=== PATIENT | male | born 1955 | race Caucasian/White ===

== ENCOUNTER → 2020-01-04 09:13 | Outpatient (CLI) | payer MEDICARE, OTHER, SELFPAY ==
[2020-01-04 10:36] LABS: Hemoglobin 15.8 g/dL (13.5-17.5); Mean Corpuscular HGB Conc 33.6 % (30-36); Mean Corpuscular Hemoglobin 30.6 PG (26-34); Mean Corpuscular Volume 91.2 fL (80-100); Platelet Count 277 X10^3/uL (150-400); Red Blood Cell Count 5.15 X10^6/uL (4.5-5.9); Red Cell Distribution Width 13.4 % (11.6-14.8); White Blood Cell Count 14.1 X10^3/uL (4.5-11.0)
[2020-01-04 11:42] LABS: Alanine Aminotransferase 22 IU/L (<50); Albumin 4.8 g/dL (3.5-5.0); Albumin Globulin Ratio 1.7 (1.0-2.8); Alkaline Phosphatase 96 U/L (38-126); Aspartate Aminotransferase 22 IU/L (17-59); BUN Creatinine Ratio 19.7 (6-22); Bilirubin Total 1.1 mg/dL (0.2-1.3); Blood Urea Nitrogen 15 mg/dL (9-20); Calcium 10.2 mg/dL (8.4-10.2); Carbon Dioxide 28 mmol/L (22-32); Chloride 105 mmol/L (98-107); Cholesterol 183 mg/dL (140-199); Estimated Glomerular Filt Rate > 60.0 mL/min (>60); Globulin 2.9 g/dL (1.7-4.1); HDL Cholesterol 49 mg/dL (40-60); HEMOLYSIS < 15 (0-50); LDL Cholesterol Calculated 114 mg/dL (<100); Potassium 3.2 mmol/L (3.4-5.1); Sodium 143 mmol/L (137-145); Total Protein 7.7 g/dL (6.3-8.2); Triglycerides 98 mg/dL (35-150); VLDL Cholesterol Calculated 20 mg/dL (2-30)
[2020-01-04 12:17] LABS: Glucose 36 mg/dL (80-110)
[2020-01-04 19:54] LABS: Creatinine Urine Random 147.5 mg/dL
[2020-01-04 19:58] LABS: Microalbumi Creatinin Ratio Ur 59.6 ug/mg CR (<30); Microalbumin Urine Random 8.8 mg/dL (0-1.6)
[2020-01-05 07:09] LABS: PSA, Total 0.8 ng/mL (0.0-4.0)
== END ==
PROVIDERS: PCP Nurse Practitioner; Referring Provider Nurse Practitioner; Visit Provider Nurse Practitioner
DX: E11.9 Type 2 diabetes mellitus without complications (principal); N40.0 Benign prostatic hyperplasia without lower urinary tract symptoms
CPT/HCPCS: 36415; 80053; 80061; 82043; 82570; 84153; 84154; 85027

== ENCOUNTER → 2020-07-17 10:13 | Outpatient (CLI) | payer MEDICARE, OTHER, SELFPAY ==
[2020-07-17 11:26] LABS: COVID19 -Nasal RAPID Negative (Negative)
== END ==
PROVIDERS: PCP Nurse Practitioner; Visit Provider Specialist
DX: Z01.812 Encounter for preprocedural laboratory examination (principal); Z20.822 Contact with and (suspected) exposure to COVID-19
CPT/HCPCS: 87635; C9803

== ENCOUNTER 2020-07-18 08:22 | Day surgery (SDC) | payer MEDICARE, OTHER, SELFPAY ==
[2020-07-18] VITALS (8 sets, daily range): BP systolic 151–173; BP diastolic 79–117; PULSE 79–97; RESP 11–18; TEMP 36.5–37.2; O2SAT 94–99; BMI 33.0
--- NOTE | 2020-07-18 | PATH_ITS ---
[facility] Accession Number: [id number] . 01 Material submitted: . PART A: colon - 1 ASCENDING COLON PART B: body - 2 90 CM . 01 Clinical history: . SCREENING COLONOSCOPY . 02 Diagnosis: A. Ascending Colon, Biopsy: Tubular adenoma. . B. Colon, 90 cm, Biopsy: Tubular adenoma. . [facility] 07/20/2020 1536 Local . 02 Electronically signed: . Sylvia Carreon MD, Pathologist NPI- [id number] . 01 Gross description: . Part A: 1 ASCENDING COLON: Received in formalin are 2 fragment(s) of beal, soft tissue measuring 0.2 x 0.1 x 0.1 cm to 0.3 x 0.2 x 0.2 cm submitted entirely in 1 cassette(s) Part B: 2 90 CM: Received in formalin is 1 fragment(s) of beal, soft tissue measuring 0.2 x 0.2 x 0.2 cm submitted entirely in 1 cassette(s) /JONATAN 07/19/2020 2018 Local . 02 Pathologist provided ICD-10: D12.2, D12.6 . 02 CPT . 025384, [id number] Performed at: 01 [facility] [address], [place], [place] [id number] MD David Pham MD Phone: [phone] Performed at: 02 [facility] [address] [place], [place] [id number] MD Sylvia Carreon MD Phone: [phone]
--- NOTE | 2020-07-18 10:12 | PM.HP.1 ---
History of Present Illness History of Present Illness Date Patient Seen: 07/18/20 Time Patient Seen: 10:13 Chief complaint: SCREENING COLONOSCOPY Narrative: Patient is a gentleman here for screening examination. Last exam was 6 years ago. He had polyps removed at that time. Patient History Medical History (Updated 07/18/20 @ 10:14 by Bartolo Arriaza MD) Essential hypertension Type 2 diabetes mellitus Umbilical hernia with obstruction Family & Social History Social History: household members significant other Tobacco & Substance use: Smoking Status Never smoker alcohol intake current alcohol intake frequency 0-2 drinks per day Substance Use Type does not use Meds Home Medications and Allergies Home Medications Medication Instructions Recorded Confirmed Type Benadryl 1 tab PO DAILY PRN 07/18/20 07/18/20 History Novolin 70/30 U-100 Insulin 30 units SUBDERMAL DAILY 07/18/20 07/18/20 History atorvastatin 10 mg PO DAILY 07/18/20 07/18/20 History lisinopril 5 mg PO DAILY 07/18/20 07/18/20 History metformin 500 mg PO BID 07/18/20 07/18/20 History omeprazole 20 mg PO DAILY 07/18/20 07/18/20 History pioglitazone 30 mg PO DAILY 07/18/20 07/18/20 History Allergies Allergy/AdvReac Type Severity Reaction Status Date / Time No Known Drug Allergies Allergy Verified 07/18/20 08:43 Review of Systems Review of Systems Narrative: No chest pain black or bloody bowel movements seizures blackouts numbness tingling. No heart problems and no breathing issues. Exam Vital Signs (past 8 hours): - 07/18/20 08:53 Temperature 97.7 F Pulse Rate 97 H Respiratory Rate 18 Blood Pressure 173/91 H Pulse Oximetry 99 Oxygen Delivery Method Room Air Narrative Exam Narrative: Pleasant cooperative patient no apparent distress. Lungs are clear to auscultation. No rales or rhonchi. Heart regular rate and rhythm no murmur gallop. Abdomen is soft nontender without mass. Incarcerated umbilical hernia. Not tender. No redness.. Patient is alert and oriented x3. Assessment & Plan Assessment & Plan narrative: The patient for a screening colonoscopy. I have discussed the procedure with them. Risks of bleeding, perforation which would necessitate major operation, failure to find remove all lesions, the potential tattoo were all discussed. All questions were answered. They wished to proceed.
--- NOTE | 2020-07-18 10:18 | PM.PREOP ---
Pre-operative Note COVID-19 COVID-19 status: Negative Result date/Date tested (Pos, Neg/Pending): 07/17/20 Interval Note History & Physical reviewed/Exam performed by Physician: Yes Changes to H&P: No ASA Class (for procedural sedation): III
[2020-07-18] MEDS: MIDAZOLAM 5 MG/5 ML VIAL IV (10:23)
[2020-07-18] MEDS: fentaNYL 250 MCG/5 ML INJ IV (10:23)
--- NOTE | 2020-07-18 10:49 | PM.OP.ENDO ---
Operative Date/Time/Diagnoses Date of procedure: 07/18/20 Time of procedure: 10:49 Pre-op diagnosis: Screening exam. Last exam 6 years ago. Personal history of polyps. Post-op diagnosis: same (Small polyps. Occasional diverticulosis.) Procedure & Clinicians Study performed: Colonoscopy with cold biopsies Same procedure as scheduled: Yes Indications: Screening in increased risk patient Surgeon: Bartolo Arriaza Procedure Notes SCOAP/Timeout: Performed Procedure in detail: The patient was placed in the left lateral decubitus position and underwent IV sedation directed by the surgeon consisting of fentanyl and Versed. Digital exam was unremarkable. I could not feel his prostate well due to the length of my finger and his anatomy.. The scope was inserted and advanced through the rectum into the sigmoid, descending, transverse, and ascending colon. A stiffener was inserted in order to reach the cecum.. The cecum was reached identified by the ileocecal valve and the appendiceal opening. The ileocecal valve was briefly cannulated. The terminal ileum was normal in appearance. The scope was gradually brought out. Polyps were found at the ascending colon and at 90 cm from the anal verge. Both of these were tiny.. The scope ultimately was retroflexed in the rectum. The appearance was normal. The scope was removed and the patient tolerated the procedure well. Prep was very good. Scope withdrawal time: 10 minutes (13 total) Sedation minutes: 26 Findings: polyp Specimen(s): other (Polyps) Complications: none Post-procedure Recommendations: Colonscopy in 5 years Follow up: as needed Disposition: PACU
--- NOTE | 2020-07-18 11:41 | SUR.PHASEII ---
Pt has met discharge criteria: VSS, denied pain or nausea, able to drink fluids without difficulty. Discharge instructions discussed with pt & girlfriend, all questions answered. Transported via W/C to private vehicle.
== END 2020-07-18 11:40 | disposition home or self-care (01) ==
PROVIDERS: PCP Nurse Practitioner; Referring Provider Specialist; Visit Provider Specialist
PROC: 0DJD8ZZ Inspection of Lower Intestinal Tract, Via Natural or Artificial Opening Endoscopic (ICD-10-PCS; CPT 45378; principal; 2020-07-18 09:15)
DX: Z12.11 Encounter for screening for malignant neoplasm of colon (principal); Z86.010 Personal history of colon polyps; I10 Essential (primary) hypertension; E11.9 Type 2 diabetes mellitus without complications; Z79.4 Long term (current) use of insulin; K57.30 Diverticulosis of large intestine without perforation or abscess without bleeding; D12.2 Benign neoplasm of ascending colon; D12.6 Benign neoplasm of colon, unspecified
CPT/HCPCS: 45380; 82962; 99152; 99153; J2250; J3010

== ENCOUNTER → 2020-07-26 14:56 | Outpatient (CLI) | payer MEDICARE, OTHER, SELFPAY ==
[2020-07-26] MEDS: COVID-19 VACC #1, MRNA(MOD) 100 MCG/0.5 ML VIAL IM (15:01)
== END ==
PROVIDERS: PCP Nurse Practitioner; Visit Provider Internal Medicine
DX: Z23 Encounter for immunization (principal)
CPT/HCPCS: 0011A; 91301

== ENCOUNTER → 2020-08-23 14:56 | Outpatient (CLI) | payer MEDICARE, OTHER, SELFPAY ==
[2020-08-23] MEDS: COVID-19 VACC #2, MRNA(MOD) 100 MCG/0.5 ML VIAL IM (15:00)
== END ==
PROVIDERS: PCP Nurse Practitioner; Visit Provider Internal Medicine
DX: Z23 Encounter for immunization (principal)
CPT/HCPCS: 0012A; 91301

== ENCOUNTER → 2021-10-16 15:09 | Outpatient (CLI) | payer OTHER, SELFPAY ==
--- NOTE | 2021-10-17 10:15 | DIAB.MNT ---
Initial Diabetes Medical Nutrition Therapy Assessment Name: Jitendra Will Date: 10/16/21 Time: 340-5p Dx: Type II Diabetes Provider: Victorina Ham presents for initial visit accompanied by , Adia. 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 Reports no h/o DM classes. Has had 1:1 DSME visits when first diagnosed 15 years ago and then again 6-7 years ago. Has questions today about medication management, diet, when to see an endo, urinary freq/incontinence and lows. Reports h/o foot etiologies. Today upon visual inspection, discoloration and edema in feet with some ulceration. Does not wear socks in shoes. Normally sees it trainer q 6 months. Has appt next week. Endorses LE swelling for years. Also has been on Actos for years, which may be a contributing factor. checks feet regularly, putting lotion on feet nightly and helping with compression socks sometimes. Diet recall indicates some higher carb and sodium meals. States he has been on 70/30 for some time and sometimes experiences lows, ie on hikes, if small or skipped breakfast. States he was on 70/30 to be on an easy regimen but seems curious about other insulins and the differences. Low fluid intake, denies fluid restriction. Denies any genital infections (jardiance concern). Diet Recall: a: bagel with cream cheese and tomato or avocato +/- 1c fruit or 1c cereal with 1c berries and 3/4c milk (50-75g CHO) 1030-11a: +/- oatmeal raisin cookie from grocery store (45g CHO) 2p: safeway sushi x 6-7 pieces + 3oz baked chips OR sandwich with chips OR safeway premade vallejo salad (60-75g CHO) 5p: cheese and crackers with cashews or chips and salsa 630p: protein with 1c starch, veggies Beverages: 1L water, 2 servings wine or beer, +/- coffee with milk x 8oz, +/- 8oz OJ Anthropometrics: Ht: 70 Wt: 230# per referral Physical Activity: No program / limited program. Self-Monitoring Blood Glucose: Checking FBG and pre dinner. Per log book, FBG 100-130s and pre dinner in the 200s consistently. Possible that higher carb lunch and snacks may be contributing to elevations pre dinner. Diabetes Medications: Jardiance 25mg Metformin 1000mg BID Pioglitizone 30mg NPH/Regular 70/30 42u BID Pertinent Labs: HgA1c: (per referral) 7.7% 06/2021 8.5% 6 months ago Past Medical History: (Last Updated 07/18/20 @ 10:14 by Bartolo Arriaza MD) Essential hypertension Type 2 diabetes mellitus Umbilical hernia with obstruction Nutrition Rx: Carbohydrates: Meal:45g Snack:15-30g Nutrition Diagnosis: - Excessive CHO intake r/t nutrition knowledge deficit aeb diet recall and pt report - Physical inactivity r/t lack of program / stage of change aeb pt report - Intervention: This participant was very receptive. Provided appropriate educational handouts. Discussed the following topics: Completed intake assessment. Discussed barriers to care. self-monitoring, how often, and when to check. Suggested checking at different times to evaluate meals Plate Method, impact of macronutrients on blood sugar, meal timing, carbohydrate counting, pairing macronutrients and spreading out carbohydrates for better blood glucose management Recommended servings for carbohydrates at meals and snacks Heart health nutrition, sodium and swelling Fluid recs, eileen for Jardiance use Reviewed potential for CGM: benefits and trial Different medication management options and actions: insulins, GLP1, SGLT2i Food health and recs Created SMART goals for patient self-care and success. Goals: Get ankle socks Check BG through the day: FBG, pre/post meals Reduce carbs at meals to 45g (max 60g) Follow-up: MICHEAL LILLY follow-up in 2-3 weeks Meme Pierre RDN, MAXX Certified Diabetes Care and Dice Spotter P: [phone] Thank you for this referral
== END ==
PROVIDERS: PCP Nurse Practitioner; Referring Provider Nurse Practitioner; Visit Provider Nurse Practitioner
DX: E11.9 Type 2 diabetes mellitus without complications (principal); Z79.84 Long term (current) use of oral hypoglycemic drugs; Z79.4 Long term (current) use of insulin; Z71.3 Dietary counseling and surveillance
CPT/HCPCS: 97802

== ENCOUNTER → 2021-10-30 15:57 | Outpatient (CLI) | payer OTHER, SELFPAY ==
--- NOTE | 2021-10-30 17:33 | DIAB.FU ---
Follow-up Diabetes Education Assessment Name: Jitendra Will Date: 10/30/21 Time: 4-5p Dx: Type II Diabetes Jitendra presents for follow-up regarding T2DM with his , Adia. 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 Recs provided by visit was to keep last two toes dry, use rico's wool to assist, and referred to ultrasound to determine blood flow. Recently got socks to use as discussed. Reports he will be leaving this month for another work trip. Will be on a boat and likely going on hikes, etc. Has h/o lows with physical activity per report. Does not usually keep food or glucotabs on hand. Has questions about how ETOH can impact BG. Seems frustrated with medication regimen and cont hyperglycemia. Endorses feeling as though he cannot commit to lifestyle changes at this time due to his work schedule. Would prefer to increase insulin to manage BG. Plans to see PCP tomorrow. Is interested in seeing endo for further recs regarding meds. Physical Activity: No program currently. Self-Monitoring Blood Glucose: FBG often in goal or slightly above. Readings later in the day fairly consistently above goal. Explains a breakfast of 45g CHO, low PRO causing elevation of 205 mg/dl. Bolded readings below elevated per ADA guidelines. 3/8 elevated FBG ; 4/4 elevated pre dinner and 2/3 elevated pc dinner. Date Pre Post Pre Post Pre Post HS 10/17 142 220 10/18 86 148 302 10/19 99 10/20 126 230 10/21 132 10/22 147 153 173 10/27 109 5/ 5 104 259 10/30 146 205 227 Diabetes Medications: Jardiance 25mg Metformin 1000mg BID Pioglitizone 30mg NPH/Regular 70/30 42u BID Pertinent Labs: HgA1c: (per referral) 7.7% 06/2021 8.5% 6 months ago Past Medical History: (Last Updated 07/18/20 @ 10:14 by Bartolo Arriaza MD) Essential hypertension Type 2 diabetes mellitus Umbilical hernia with obstruction Intervention: This participant was very receptive. Provided appropriate educational handouts. Discussed the following topics: Recent blood sugar results and trends Medication management Review of general nutrition recommendations and current intake ETOH impact on BG Physical activity plan Label reading for net carbs Breakfast options with more fiber and pro Prevention of complications: foot care Prevention of lows Created SMART goals for patient self-care and success. Goals: Get ankle socks Check BG through the day: FBG, pre/post meals Reduce carbs at meals to 45g (max 60g) Purchase wool for toes- new Carry a supplemental bar and glucotabs on hikes- new Ask provider about endo- new Overall, Jitendra seems more aware of BG trends and impact of lifestyle changes. He also is honest about his ability to make changes at this time. Seems likely that with more activity and balanced meals/snacks his BG may improve, but at this time he may benefit from medication adjustment. Potential for titration of a.m. insulin given hyperglycemia during the day. Follow-up: MICHEAL LLILY follow-up in February. Jitendra would like to check in after his work season slows down in the fall. Meme Pierre, MICHEAL, [facility] Certified Diabetes Care and Animal Husbandry Teacher P: [phone] Thank you for this referral
== END ==
PROVIDERS: PCP Nurse Practitioner; Referring Provider Nurse Practitioner; Visit Provider Nurse Practitioner
DX: E11.9 Type 2 diabetes mellitus without complications (principal); Z71.3 Dietary counseling and surveillance; Z79.84 Long term (current) use of oral hypoglycemic drugs; Z79.4 Long term (current) use of insulin
CPT/HCPCS: G0108

== ENCOUNTER → 2022-06-07 09:22 | Outpatient (CLI) | payer OTHER, SELFPAY ==
[2022-06-07 10:17] LABS: Add Manual Diff / Slide Review NO; Basophils Absolute Auto 0 /uL (0-100); Basophils Percent Auto 0.4 % (0-2); Eosinophils Absolute Auto 100 /uL (0-450); Eosinophils Percent Auto 1.6 % (2-4); Hematocrit 44.6 % (41-53); Hemoglobin 15.2 g/dL (13.5-17.5); Lymphocytes Absolute Auto 1800 /uL (1100-4500); Lymphocytes Percent Auto 21.2 % (25-40); Mean Corpuscular HGB Conc 34.2 % (30-36); Mean Corpuscular Hemoglobin 31.5 PG (26-34); Mean Corpuscular Volume 92.2 fL (80-100); Monocytes Absolute Auto 600 /uL (0-900); Monocytes Percent Auto 6.7 % (3-14); Neutrophils Absolute Auto 5900 /uL (1500-7000); Neutrophils Percent Auto 70.1 % (50-75); Platelet Count 218 X10^3/uL (150-400); Red Blood Cell Count 4.83 X10^6/uL (4.5-5.9); White Blood Cell Count 8.4 X10^3/uL (4.5-11.0)
[2022-06-07 10:21] LABS: Hemoglobin A1C% w Est Avg Glu 7.6 % (4.0-6.0)
[2022-06-07 11:07] LABS: Creatinine Urine Random 152.6 mg/dL
[2022-06-07 11:10] LABS: Microalbumi Creatinin Ratio Ur 33.4 ug/mg CR (<30); Microalbumin Urine Random 5.1 mg/dL (0-1.6)
[2022-06-07 11:17] LABS: TSH w/ Reflex to FT4 1.89 uIU/mL (0.47-4.68)
[2022-06-07 11:36] LABS: Hep C Virus Ab w/Reflex Quant NEGATIVE s/c (NEGATIVE)
[2022-06-07 12:22] LABS: Alanine Aminotransferase 24 IU/L (<50); Albumin 4.3 g/dL (3.5-5.0); Albumin Globulin Ratio 1.4 (1.0-2.8); Alkaline Phosphatase 94 U/L (38-126); Aspartate Aminotransferase 25 IU/L (17-59); BUN Creatinine Ratio 23.3 (6-22); Bilirubin Total 1.4 mg/dL (0.2-1.3); Blood Urea Nitrogen 17 mg/dL (9-20); Calcium 8.7 mg/dL (8.4-10.2); Carbon Dioxide 29 mmol/L (22-32); Chloride 103 mmol/L (98-107); Cholesterol 111 mg/dL (140-199); Estimated Glomerular Filt Rate > 60 mL/min (>60); Glucose 88 mg/dL (80-110); HDL Cholesterol 62 mg/dL (40-60); LDL Cholesterol Calculated 35 mg/dL (<100); Potassium 3.9 mmol/L (3.4-5.1); Sodium 140 mmol/L (137-145); Total Protein 7.3 g/dL (6.3-8.2); Triglycerides 72 mg/dL (35-150)
[2022-06-07 16:57] LABS: HEMOLYSIS < 15 (0-50)
== END ==
PROVIDERS: PCP Family Medicine; Referring Provider Family Medicine; Visit Provider Family Medicine
DX: E11.9 Type 2 diabetes mellitus without complications (principal); I10 Essential (primary) hypertension; Z12.5 Encounter for screening for malignant neoplasm of prostate; E78.2 Mixed hyperlipidemia
CPT/HCPCS: 36415; 80053; 80061; 82043; 82570; 83036; 84443; 85025; 86803; G0103

== ENCOUNTER → 2022-12-29 08:50 | Outpatient (CLI) | payer OTHER, SELFPAY ==
--- NOTE | 2022-12-29 08:51 | DI.MRI.S_ITS ---
PROCEDURE: MR HEAD/BRAIN WO/W CON INDICATIONS: imbalance, urinary incontinence, syncope TECHNIQUE: Noncontrast axial T1 spin echo, axial T2 fast spin echo, sagittal and axial FLAIR, coronal T2 fast spin echo, axial gradient echo, axial diffusion and ADC through the brain. After the administration of contrast, axial and coronal and sagittal T1 spin echo with fat saturation through the brain. COMPARISON: None. FINDINGS: Image quality: Excellent. CSF spaces: Basal cisterns are patent. No extra-axial fluid collections. Ventricles are normal in size and shape. Brain: No midline shift. No intracranial bleeds or masses. No abnormal intracranial enhancement. There is cerebral volume loss for age. There is periventricular white matter chronic small vessel ischemic change. The brainstem appears normal. Diffusion-weighted images demonstrate no acute ischemic insults. No chronic ischemic insults. Normal intravascular flow voids are present. Skull and face: Calvarial marrow is normal in signal. Orbits appear normal. Sinuses: Sinuses and mastoids appear clear. IMPRESSION: 1. Mild volume loss and small vessel ischemic disease. 2. No acute process. No recent infarct. Dictated by: Amol Prabhakar M.D. on 12/30/2022 at 10:20 Approved by: Amol Prabhakar M.D. on 12/30/2022 at 10:21
== END ==
PROVIDERS: PCP Family Medicine; Referring Provider Family Medicine; Visit Provider Family Medicine
DX: R26.89 Other abnormalities of gait and mobility (principal); R32 Unspecified urinary incontinence; R55 Syncope and collapse
CPT/HCPCS: 70553

== ENCOUNTER → 2023-01-01 09:40 | Outpatient (CLI) | payer OTHER, SELFPAY | PROVIDERS: PCP Family Medicine; Referring Provider Family Medicine; Visit Provider Family Medicine | DX: R55 Syncope and collapse (principal) | CPT/HCPCS: 93246 ==

== ENCOUNTER → 2023-02-03 08:38 | Outpatient (CLI) | payer OTHER, SELFPAY ==
[2023-02-03 10:20] LABS: Appearance Urine UA CLEAR; Bilirubin Urine UA NEGATIVE (NEGATIVE); Color Urine UA YELLOW; Glucose Urine UA 3+ g/dL (Negative); Ketones Urine UA TRACE (NEGATIVE); Leukocyte Esterase Urine UA NEGATIVE (NEGATIVE); Nitrite Urine UA NEGATIVE (Negative); Occult Blood Urine UA NEGATIVE (Negative); Protein Urine UA TRACE (Negative); pH Urine UA 5.5 (4.5-8.0)
[2023-02-03 10:34] LABS: Bacteria Urine Few (2-10); Mucus Urine 1+ (Negative); RBC Urine 0-1/HPF (0-5/HPF); Squamous Epithelial Cell Urine 0-1 /HPF (0-5/HPF); WBC Urine 5-10/HPF (0-5/HPF)
[2023-02-03 10:35] LABS: Culture Indicated Urine Specimen Cultured
[2023-02-03 10:51] LABS: Creatinine Urine Random 155.3 mg/dL
[2023-02-03 10:56] LABS: Microalbumi Creatinin Ratio Ur 28.9 ug/mg CR (<30); Microalbumin Urine Random 4.5 mg/dL (0-1.6)
[2023-02-03 11:34] LABS: Add Manual Diff / Slide Review NO; Basophils Absolute Auto 0 /uL (0-100); Basophils Percent Auto 0.5 % (0-2); Eosinophils Absolute Auto 100 /uL (0-450); Eosinophils Percent Auto 0.8 % (2-4); Hematocrit 42.4 % (41-53); Hemoglobin 14.5 g/dL (13.5-17.5); Lymphocytes Absolute Auto 1700 /uL (1100-4500); Lymphocytes Percent Auto 19.9 % (25-40); Mean Corpuscular HGB Conc 34.3 % (30-36); Mean Corpuscular Hemoglobin 31.9 PG (26-34); Mean Corpuscular Volume 93.2 fL (80-100); Monocytes Absolute Auto 500 /uL (0-900); Monocytes Percent Auto 5.3 % (3-14); Neutrophils Absolute Auto 6400 /uL (1500-7000); Neutrophils Percent Auto 73.5 % (50-75); Platelet Count 215 X10^3/uL (150-400); Red Blood Cell Count 4.54 X10^6/uL (4.5-5.9); White Blood Cell Count 8.7 X10^3/uL (4.5-11.0)
[2023-02-03 11:46] LABS: Alanine Aminotransferase 20 IU/L (<50); Albumin 4.1 g/dL (3.5-5.0); Albumin Globulin Ratio 1.5 (1.0-2.8); Alkaline Phosphatase 72 U/L (38-126); Aspartate Aminotransferase 22 IU/L (17-59); BUN Creatinine Ratio 20.7 (6-22); Bilirubin Total 1.7 mg/dL (0.2-1.3); Blood Urea Nitrogen 17 mg/dL (9-20); Calcium 9.1 mg/dL (8.4-10.2); Carbon Dioxide 29 mmol/L (22-32); Chloride 100 mmol/L (98-107); Estimated Glomerular Filt Rate > 60 mL/min (>60); Globulin 2.8 g/dL (1.7-4.1); Glucose 88 mg/dL (80-110); HEMOLYSIS < 15 (0-50); Potassium 5.2 mmol/L (3.4-5.1); Sodium 136 mmol/L (137-145); Total Protein 6.9 g/dL (6.3-8.2)
[2023-02-04 06:06] LABS: Labcorp Hemoglobin (Hb) A1c 7.4 % (4.8-5.6)
== END ==
PROVIDERS: PCP Family Medicine; Referring Provider Family Medicine; Visit Provider Family Medicine
DX: E11.9 Type 2 diabetes mellitus without complications (principal); E78.5 Hyperlipidemia, unspecified; I10 Essential (primary) hypertension; R32 Unspecified urinary incontinence
CPT/HCPCS: 36415; 80053; 81001; 82043; 82570; 83036; 85025; 87086

== ENCOUNTER → 2023-07-17 11:17 | Outpatient (CLI) | payer OTHER, SELFPAY ==
[2023-07-17 11:50] LABS: Add Manual Diff / Slide Review NO; Basophils Absolute Auto 0 /uL (0-100); Basophils Percent Auto 0.4 % (0-2); Eosinophils Absolute Auto 200 /uL (0-450); Eosinophils Percent Auto 2.8 % (2-4); Hematocrit 43.8 % (41-53); Hemoglobin 14.5 g/dL (13.5-17.5); Lymphocytes Absolute Auto 2200 /uL (1100-4500); Lymphocytes Percent Auto 28.8 % (25-40); Mean Corpuscular HGB Conc 33.1 % (30-36); Mean Corpuscular Hemoglobin 31.2 PG (26-34); Mean Corpuscular Volume 94.2 fL (80-100); Monocytes Absolute Auto 500 /uL (0-900); Neutrophils Absolute Auto 4700 /uL (1500-7000); Platelet Count 220 X10^3/uL (150-400); Red Blood Cell Count 4.65 X10^6/uL (4.5-5.9); Red Cell Distribution Width 14.3 % (11.6-14.8); White Blood Cell Count 7.6 X10^3/uL (4.5-11.0)
[2023-07-17 12:37] LABS: Hemoglobin A1C% w Est Avg Glu 7.6 % (4.0-6.0)
[2023-07-17 12:39] LABS: Alanine Aminotransferase 27 IU/L (<50); Albumin 4.3 g/dL (3.5-5.0); Albumin Globulin Ratio 1.5 (1.0-2.8); Alkaline Phosphatase 73 U/L (38-126); Aspartate Aminotransferase 25 IU/L (17-59); BUN Creatinine Ratio 21.6 (6-22); Bilirubin Total 1.5 mg/dL (0.2-1.3); Blood Urea Nitrogen 19 mg/dL (9-20); Calcium 9.6 mg/dL (8.4-10.2); Carbon Dioxide 29 mmol/L (22-32); Chloride 100 mmol/L (98-107); Cholesterol 127 mg/dL (140-199); Estimated Glomerular Filt Rate > 60 mL/min (>60); Globulin 2.9 g/dL (1.7-4.1); Glucose 117 mg/dL (80-110); HDL Cholesterol 68 mg/dL (40-60); HEMOLYSIS < 15 (0-50); LDL Cholesterol Calculated 47 mg/dL (<100); Potassium 4.4 mmol/L (3.4-5.1); Sodium 138 mmol/L (137-145); Total Protein 7.2 g/dL (6.3-8.2); Triglycerides 59 mg/dL (35-150)
[2023-07-17 13:08] LABS: TSH w/ Reflex to FT4 2.05 uIU/mL (0.47-4.68)
== END ==
PROVIDERS: PCP Family Medicine; Referring Provider Family Medicine; Visit Provider Family Medicine
DX: E11.69 Type 2 diabetes mellitus with other specified complication (principal); Z12.5 Encounter for screening for malignant neoplasm of prostate; N52.1 Erectile dysfunction due to diseases classified elsewhere; I10 Essential (primary) hypertension; E78.5 Hyperlipidemia, unspecified; E11.9 Type 2 diabetes mellitus without complications; N40.1 Benign prostatic hyperplasia with lower urinary tract symptoms; N13.8 Other obstructive and reflux uropathy
CPT/HCPCS: 36415; 80053; 80061; 83036; 84443; 85025; G0103

== ENCOUNTER → 2023-10-01 15:17 | Outpatient (CLI) | payer OTHER, SELFPAY ==
--- NOTE | 2023-10-22 17:18 | DIAB.MNT ---
Addendum entered by Meme Pierre 10/30/23 10:25: SMBG: Isac indicates goal of in target >75% of the time not met or out of range. Original Note: Initial Diabetes Medical Nutrition Therapy Assessment Name: Jitendra Will Date: 10/01/23 Time: 330-5p Dx: Type II Diabetes Jitendra presents for initial Dm visit. Last RD/CDCES visit in 2021. Last few HgA1c ranging from 7.5-7.6%. He is currently wearing a CGM. has questions about Dm meds. 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 Plans to leave 11/24 for [employer] x 1.5 month. Reports feet are stiff. Trying to walk more. Feels he is taking too many meds. on Semaglutide with some GI upset at low dose. Has questions on ETOH impact on BG. Diet recall: 7-8a: aussie bites x 2, 8oz OJ, 1 serving of fruit 12-1p: bowl of ramen with veggies +/- cookie 6p: 3 crackers, glass wine or beer, veggies, meat +/- pasta OR 1c chili with crackers Anthropometrics: Ht: 5'10 Wt: 248# 07/2023 Physical Activity: walks 4x per week Self-Monitoring Blood Glucose: Isac indicates >75% out of range. Some mornings >180mg/dl, but often wakes lower and hyperglycemia occurs after lunch and dinner. some lows over the last 14 days. He is not familiar with how to tx lows with rule of 15. Time in range: 21% very high 34% high 44% in range 1% low Diabetes Medications: 25mg Jardiance 0.25mg Semaglutide 30mg Pioglitizone 1000mg BID Metformin 42u am 38u pm NPH 70/30 Pertinent Labs: Past Medical History: (Last Updated 02/03/23 @ 13:57 by Jayy Goel MD) BPH w urinary obs/LUTS Cataracts, bilateral (~2019) Erectile dysfunction due to type 2 diabetes mellitus Essential hypertension Glucosuria Hyperlipidemia Male circumcision SVT (supraventricular tachycardia) Type 2 diabetes mellitus (~2000) Umbilical hernia with obstruction Venous stasis dermatitis of both lower extremities Nutrition Rx: Carbohydrates: Meal:45h (max 60g) Snack:15-30g Nutrition Diagnosis: - Excessive CHO intake r/t nutrition knowledge deficit aeb diet recall and pt report - Intervention: This participant was very receptive. Provided appropriate educational handouts. Discussed the following topics: Completed intake assessment. Discussed barriers to care. Plate Method, impact of macronutrients on blood sugar, meal timing, carbohydrate counting, pairing macronutrients and spreading out carbohydrates for better blood glucose management Recommended servings for carbohydrates at meals and snacks Rule of 15 for lows review Medication review: actions, se, simplifying plan ETOH and hypoglycemia Brainstormed appropriate meal plan based on food preferences Role of physical activity and following provider guidelines for safety Created SMART goals for patient self-care and success. Goals: Avoid juice, unless hypoglycemic Move cookie to 3p prn Practice RUle 15 for lows Fingerstick lows if no symptoms Follow-up: MICHEAL LILLY follow-up in 2-3 weeks Meme Pierre RDN, [place] Certified Diabetes Care and Residential Door Unit Installer P: [phone] Thank you for this referral
== END ==
PROVIDERS: PCP Family Medicine
DX: E11.9 Type 2 diabetes mellitus without complications (principal); Z79.84 Long term (current) use of oral hypoglycemic drugs; Z79.4 Long term (current) use of insulin; Z71.3 Dietary counseling and surveillance
CPT/HCPCS: 97802

== ENCOUNTER → 2023-10-30 10:27 | Outpatient (CLI) | payer OTHER, SELFPAY ==
--- NOTE | 2023-11-18 08:01 | DIAB.FU ---
Addendum entered by Meme Pierre 11/25/23 16:03: Call from pt spouse today about very low BG during his trip (50-60s). Taking Mounjaro now along with other Dm medications. Does not have his meter with him to confirm lows. Not symptomatic with lows. Some CGM reports look as though the sensor may be faulty. Has been holding his NPH 70/30 as a result since yesterday. reports he will be letting his Jardiance rx lapse due to cost. PCP notes indicate goal of d/c pioglitazone and titrating off NPH. Explained this to pt's spouse and encouraged continued d/c of insulin at this time with TIR 2% very high, 12% high, 78% in range, 7% low, and 1% very low. States he does have hypoglycemia tx with him. plans to call pt today and continue d/c of NPH, buy a meter when able, and update RD/CDCES (will also monitor remotely prn). Original Note: Follow-up Diabetes Education Assessment Name: Jitendra Will Date: 10/30/23 Time: 1035-1130a Dx: Type II Diabetes Jitendra presents for Dm visit. Reports h/o hospitalization during a boat trip after ETOH intake, which he thinks hypoglycemia may have played a role. Does not have glucagon for emergencies. Recently went to [place] and forgot meds, which explains hyperglycemia. Loves FSL 3 Has not started Mounjaro yet. Plans to start Friday, but worries about titration with upcoming trip and access to pharmacies with remote boat trip. 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 Anthropometrics: Ht: 5'10 Wt: 248# 07/2023 Physical Activity: walks 4x per week Self-Monitoring Blood Glucose: Increase in elevations due to missing Dm meds during [place] trip. Today 14 day: Time in range: 45% very high 25% high 30% in range 0% low Last visit: Time in range: 21% very high 34% high 44% in range 1% low Diabetes Medications: 25mg Jardiance Mounjaro-- not started 30mg Pioglitizone 1000mg BID Metformin 42u am 38u pm NPH 70/30 Pertinent Labs: HgA1c: 7.6% 05/2022 7.5% 01/2023 7.6% 06/2023 Past Medical History: (Last Updated 02/03/23 @ 13:57 by Jayy Goel MD) BPH w urinary obs/LUTS Cataracts, bilateral (~2019) Erectile dysfunction due to type 2 diabetes mellitus Essential hypertension Glucosuria Hyperlipidemia Male circumcision SVT (supraventricular tachycardia) Type 2 diabetes mellitus (~2000) Umbilical hernia with obstruction Venous stasis dermatitis of both lower extremities Intervention: This participant was very receptive. Provided appropriate educational handouts. Discussed the following topics: Recent blood sugar results and trends Medication management and troubleshooting GLP1 access Review of general nutrition recommendations and current intake and strategies while on trip Physical activity plan and impact on blood sugars Glucagon use. s/s of hypoglycemia. Impact of ETOH on BG. Created SMART goals for patient self-care and success. 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 Meme Pierre RDN, MAXX Certified Diabetes Care and Vertical Borer P: [phone] Thank you for this referral
== END ==
PROVIDERS: PCP Family Medicine; Referring Provider Family Medicine
DX: E11.42 Type 2 diabetes mellitus with diabetic polyneuropathy (principal); E11.65 Type 2 diabetes mellitus with hyperglycemia; Z79.4 Long term (current) use of insulin; Z79.84 Long term (current) use of oral hypoglycemic drugs; Z79.85 Long-term (current) use of injectable non-insulin antidiabetic drugs; Z71.3 Dietary counseling and surveillance
CPT/HCPCS: G0108

== ENCOUNTER → 2024-07-19 09:43 | Outpatient (CLI) | payer MEDICARE, OTHER, SELFPAY ==
[2024-07-19 10:24] LABS: Hemoglobin A1C% w Est Avg Glu 8.5 % (4.0-6.0)
[2024-07-19 10:34] LABS: Alanine Aminotransferase 22 IU/L (<50); Albumin 4.6 g/dL (3.5-5.0); Albumin Globulin Ratio 1.8 (1.0-2.8); Alkaline Phosphatase 88 U/L (38-126); Aspartate Aminotransferase 23 IU/L (17-59); BUN Creatinine Ratio 19.3 (6-22); Bilirubin Direct 0.2 mg/dL (0.0-0.4); Bilirubin Total 1.9 mg/dL (0.2-1.3); Blood Urea Nitrogen 17 mg/dL (9-20); Calcium 9.3 mg/dL (8.4-10.2); Carbon Dioxide 27 mmol/L (22-32); Chloride 101 mmol/L (98-107); Estimated Glomerular Filt Rate > 60 mL/min (>60); Globulin 2.5 g/dL (1.7-4.1); Glucose 212 mg/dL (80-110); HEMOLYSIS 15 (0-50); Potassium 4.1 mmol/L (3.4-5.1); Sodium 138 mmol/L (137-145); Total Protein 7.1 g/dL (6.3-8.2)
[2024-07-19 10:52] LABS: Creatinine Urine Random 95.56 mg/dL
[2024-07-19 10:57] LABS: Microalbumin Urine Random 2.2 mg/dL (0-1.6)
[2024-07-19 11:04] LABS: Prostate Specific Antigen Scrn 0.564 ng/mL (0.1-4.0)
== END ==
PROVIDERS: PCP Family Medicine; Referring Provider Family Medicine; Visit Provider Family Medicine
DX: Z00.00 Encounter for general adult medical examination without abnormal findings (principal); Z12.5 Encounter for screening for malignant neoplasm of prostate; E78.5 Hyperlipidemia, unspecified; I10 Essential (primary) hypertension; I87.2 Venous insufficiency (chronic) (peripheral); E11.69 Type 2 diabetes mellitus with other specified complication; N52.1 Erectile dysfunction due to diseases classified elsewhere
CPT/HCPCS: 36415; 80053; 82043; 82248; 82570; 83036; G0103

== ENCOUNTER → 2025-01-13 10:42 | Outpatient (CLI) | payer MEDICARE, OTHER, SELFPAY ==
[2025-01-13 11:55] LABS: Add Manual Diff / Slide Review NO; Hematocrit 47.7 % (41-53); Hemoglobin 16.1 g/dL (13.5-17.5); Lymphocytes Absolute Auto 1700 /uL (1100-4500); Mean Corpuscular HGB Conc 33.7 % (30-36); Mean Corpuscular Hemoglobin 30.9 PG (26-34); Mean Corpuscular Volume 91.7 fL (80-100); Platelet Count 234 X10^3/uL (150-400)
[2025-01-13 12:16] LABS: Hemoglobin A1C% w Est Avg Glu 8.8 % (4.0-6.0)
[2025-01-13 12:18] LABS: Alanine Aminotransferase 15 IU/L (<50); Albumin 4.1 g/dL (3.5-5.0); Albumin Globulin Ratio 1.4 (1.0-2.8); Alkaline Phosphatase 80 U/L (38-126); Blood Urea Nitrogen 15 mg/dL (9-20); Calcium 9.0 mg/dL (8.4-10.2); Carbon Dioxide 25 mmol/L (22-32); Chloride 102 mmol/L (98-107); Cholesterol 167 mg/dL (140-199); Estimated Glomerular Filt Rate > 60 mL/min (>60); Globulin 2.9 g/dL (1.7-4.1); Glucose 131 mg/dL (70-99); HDL Cholesterol 48 mg/dL (40-60); HEMOLYSIS < 15 (0-50); Potassium 4.1 mmol/L (3.4-5.1); Sodium 136 mmol/L (137-145); Total Protein 7.0 g/dL (6.3-8.2); Triglycerides 108 mg/dL (35-150)
== END ==
PROVIDERS: PCP Family Medicine; Referring Provider Family Medicine; Visit Provider Family Medicine
DX: I10 Essential (primary) hypertension (principal); E11.9 Type 2 diabetes mellitus without complications; E78.5 Hyperlipidemia, unspecified; G62.9 Polyneuropathy, unspecified
CPT/HCPCS: 36415; 80053; 80061; 82172; 83036; 85025

== ENCOUNTER → 2025-05-10 09:32 | Outpatient (CLI) | payer MEDICARE, OTHER, SELFPAY ==
[2025-05-10 10:28] LABS: Hemoglobin A1C% w Est Avg Glu 10.8 % (4.0-6.0)
[2025-05-10 10:45] LABS: Alanine Aminotransferase 24 IU/L (<50); Albumin 4.4 g/dL (3.5-5.0); Albumin Globulin Ratio 1.6 (1.0-2.8); Alkaline Phosphatase 96 U/L (38-126); Blood Urea Nitrogen 20 mg/dL (9-20); Calcium 9.0 mg/dL (8.4-10.2); Carbon Dioxide 24 mmol/L (22-32); Chloride 102 mmol/L (98-107); Estimated Glomerular Filt Rate > 60 mL/min (>60); Globulin 2.8 g/dL (1.7-4.1); Glucose 124 mg/dL (70-99); HEMOLYSIS < 15 (0-50); Potassium 4.7 mmol/L (3.4-5.1); Sodium 140 mmol/L (137-145); Total Protein 7.2 g/dL (6.3-8.2)
[2025-05-10 11:15] LABS: TSH w/ Reflex to FT4 4.18 uIU/mL (0.47-4.68)
== END ==
PROVIDERS: PCP Family Medicine; Referring Provider Family Medicine; Visit Provider Family Medicine
DX: E11.69 Type 2 diabetes mellitus with other specified complication (principal); I10 Essential (primary) hypertension; E78.5 Hyperlipidemia, unspecified; G62.9 Polyneuropathy, unspecified; N52.1 Erectile dysfunction due to diseases classified elsewhere; E11.42 Type 2 diabetes mellitus with diabetic polyneuropathy; E78.2 Mixed hyperlipidemia; Z79.4 Long term (current) use of insulin
CPT/HCPCS: 36415; 80053; 83036; 84443